=== PATIENT | male | born 1990 | race African-American/Black ===

== ENCOUNTER 2018-05-09 13:30 | Emergency (ER) | payer OTHER ==
[~2018-05-09] VITALS: Ht 185.4 cm; Wt 70.8 kg
[~2018-05-09 13:30] MED LIST: AUGMENTIN 875-1 EACH PO; IBUPROFEN 800800 MG PO; NORCO 5-325 TA1 EACH PO
[2018-05-09 15:11] VITALS: BP 136/70
== END 2018-05-09 15:12 | disposition home or self-care (01) ==
LOC: ER 13:30
DX: Z43.1 Encounter for attention to gastrostomy (principal)